=== PATIENT | male | born 1985 | race Caucasian/White ===

== ENCOUNTER 2018-09-22 00:16 | Outpatient (CLI) | payer OTHER, SELFPAY ==
--- NOTE | 2018-09-22 10:22 | DI.CT_ITS ---
SYMPTOM/DIAGNOSIS: POSSIBLE RT KIDNEY STONE, N20.0, CALCULUS OF KIDNEY, COMPARE TO US 02/14/[address]: CT examination of the abdomen and pelvis was performed without contrast administration. Visualized portions of the liver and spleen are unremarkable in appearance as is the pancreas. Gallbladder and bile ducts are CT normal. Superior portions of the liver and spleen not included on the imaging field. No significant abdominal wall hernia is seen. No significant abdominal or pelvic adenopathy. Abdominal aorta is of normal diameter. Appendix appears normal. No evidence of diverticulitis or bowel obstruction. Adrenals appear normal bilaterally. Kidneys are unremarkable in appearance with no evidence of a renal mass, hydronephrosis or nephrolithiasis. No evidence of ureterolithiasis. No ureteral dilatation. Normal appearance of the urinary bladder. CONCLUSION: Negative abdomen and pelvic CT, no evidence of urinary tract obstruction or calcification.
== END 2018-09-22 00:36 ==
PROVIDERS: PCP Physician Assistant Medical; Visit Provider Urology
DX: N20.0 Calculus of kidney (principal)
CPT/HCPCS: 74176

== ENCOUNTER 2020-09-16 11:49 | Outpatient (REF) | payer OTHER, SELFPAY ==
[2020-09-19 02:33] LABS: Patient Race White; SARS-CoV-2 RNA Undetected (Undetected); SARS-CoV-2 Specimen Source Nasopharynx
== END 2020-09-16 12:09 ==
LOC: NCHCN 11:49
PROVIDERS: PCP Physician Assistant Medical; Visit Provider Physician Assistant Medical
DX: R05 Cough (principal)
CPT/HCPCS: U0003

== ENCOUNTER 2022-01-16 15:08 | Outpatient (REF) | payer OTHER, SELFPAY ==
[2022-01-16 15:48] LABS: ALT 40 U/L (16-63); AST 23 U/L (15-37); Albumin 4.2 g/dL (3.4-5.0); Alkaline Phosphatase 57 U/L (46-116); Anion Gap 8.2 mmol/L (3-11); BUN 21 mg/dL (7-18); Bilirubin, Total 0.4 mg/dL (0.2-1.0); CO2 29.8 mmol/L (21.0-32.0); CREATININE 0.9 mg/dL (0.70-1.30); Chloride 105 mmol/L (98-107); Glucose 87 mg/dL (74-106); Potassium 4.2 mmol/L (3.5-5.1); Sodium 143 mmol/L (136-145); Total Protein 7.1 g/dL (6.4-8.2)
[2022-01-16 23:04] LABS: PSA, Screening 1.3 ng/mL (0.0-2.5)
[2022-01-19 11:56] LABS: HIV-1/2 Ag & Ab Screen Negative (Negative)
[2022-01-19 14:06] LABS: Hepatitis C Ab w Rflx HCV PCR Negative (Negative)
[2022-01-19 14:18] LABS: Syphilis Serology (RPR) Negative (Negative)
[2022-01-19 15:33] LABS: Chlamydia Result Negative (Negative); GC Result Negative (Negative)
== END 2022-01-16 15:09 | disposition home or self-care (01) ==
LOC: NCHCN 15:08
PROVIDERS: PCP Physician Assistant Medical; Visit Provider Nurse Practitioner Family
DX: Z12.5 Encounter for screening for malignant neoplasm of prostate (principal); Z11.4 Encounter for screening for human immunodeficiency virus [HIV]; Z11.3 Encounter for screening for infections with a predominantly sexual mode of transmission; R39.11 Hesitancy of micturition; M54.59 Other low back pain; Z11.59 Encounter for screening for other viral diseases; Z00.00 Encounter for general adult medical examination without abnormal findings
CPT/HCPCS: 80053; 84153; 86803; 87389; 87491; 87591; 86592

== ENCOUNTER 2022-09-20 19:05 | Emergency (ER) | payer OTHER, SELFPAY ==
[2022-09-20] VITALS (22 sets, daily range): BP systolic 95–134; BP diastolic 47–74; PULSE 72–89; RESP 16; TEMP 38.1; O2SAT 89–99
--- NOTE | 2022-09-20 19:30 | DI.CT_ITS ---
Exam(s) CT HEAD WO EXAM: CT HEAD WO CLINICAL HISTORY: headache. TECHNIQUE: Imaging Protocol: Axial computed tomography images with coronal and sagittal reformatted images were created and reviewed COMPARISON: No exams were available for comparison FINDINGS: Ventricles and Extra axial spaces: Mild ventricular asymmetry, within normal limits of variation. Hemorrhage: None. Cerebral parenchyma: Normal. Midline shift: None. Brainstem/Cerebellum: Normal. Calvarium: Normal. Visualized Paranasal sinuses/Mastoids: Clear. Soft Tissues: Unremarkable. IMPRESSION: No acute intracranial process. RADIATION DOSE DELIVERED: 824.77mGy.cm Total DLP DATA REPOSITORY: All CT scans at this facility are submitted to the National Radiology Data Registry (NRDR) Dose Index Registry (DIR) with the [employer] ([employer]). RADIATION OPTIMIZATION: All CT scans at this facility use at least one of these dose optimization te chniques: automated exposure control; mA and/or kV adjustment per patient size (includes targeted exa ms where dose is matched to clinical indication); or iterative reconstruction.
--- NOTE | 2022-09-20 19:32 | DI.RAD_ITS ---
Exam(s) XR CHEST 1V IN DI DEPT EXAM: XR CHEST 1V IN DI DEPT CLINICAL HISTORY: low grade fever TECHNIQUE: 2D digital imaging was performed. COMPARISON: CR from 08/21/2011 FINDINGS: LUNGS: Clear. No pleural abnormality seen. HEART: Normal. AORTA: Normal. BONES: Unremarkable for age. Soft tissues: Unremarkable. IMPRESSION: No acute findings. DATA REPOSITORY: RADIATION DOSE DELIVERED:
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
[2022-09-20 20:04] LABS: Abs Immature Grans 0.01 10^3/uL (0.0-0.06); Absolute Basophil Count 0.02 10^3/uL (0.0-0.2); Absolute Eosinophil Count 0.05 10^3/uL (0.0-0.7); Absolute Lymphocyte Count 0.27 10^3/uL (1.2-3.4); Absolute Monocyte Count 0.71 10^3/uL (0.1-0.8); Basophils % 0.4; Eosinophils % 0.9; HCT 41.7 % (40.0-50.0); HGB 14.6 g/dL (13.5-17.5); Immature Grans % 0.2; MCH 31.9 pg (27.0-33.0); MCV 91 fL (80-95); MPV 10.4 fL (8.0-11.0); Monocytes % 13.2; Neutrophils % 80.3; Platelet Count 137 10^3/uL (130-400); RBC 4.57 10^6/uL (4.36-5.78); RDW 12.8 % (11.8-14.1); RDW-SD 42.2 fL; WBC 5.36 10^3/uL (4.4-10.8)
--- NOTE | 2022-09-20 20:08 | DI.VRAD_ITS ---
PROCEDURE INFORMATION: Exam: CT Head Without Contrast Exam date and time: 09/20/2022 7:45 PM Age: 36 years old Clinical indication: Pain; Headache not specified; Additional info: [facility] TECHNIQUE: Imaging protocol: Computed tomography of the head without contrast. Radiation optimization: All CT scans at this facility use at least one of these dose optimization techniques: automated exposure control; mA and/or kV adjustment per patient size (includes targeted exams where dose is matched to clinical indication); or iterative reconstruction. COMPARISON: No relevant prior studies available. FINDINGS: Brain: Mild volume loss.No hemorrhage. Unremarkable white matter. No mass effect. Cerebral ventricles: No ventriculomegaly. Paranasal sinuses: Visualized sinuses are unremarkable. No fluid levels. Mastoid air cells: Visualized mastoid air cells are well aerated. Bones/joints: Unremarkable. No acute fracture. Soft tissues: Unremarkable. IMPRESSION: No acute intracranial abnormality. Dictated and Authenticated by: Griffin Bravo MD. Ordering:MARISOL Faria MD
--- NOTE | 2022-09-20 20:08 | DI.VRAD_ITS ---
PROCEDURE INFORMATION: Exam: XR Chest Exam date and time: 09/20/2022 7:57 PM Age: 36 years old Clinical indication: Other: Low grade fever TECHNIQUE: Imaging protocol: Radiologic exam of the chest. Views: 1 view. COMPARISON: CT ABDOMEN PELVIS WO 09/22/2018 10:15 AM FINDINGS: Lungs: No mild interstitial prominence. No consolidation. Pleural spaces: Unremarkable. No pleural effusion. No pneumothorax. Heart/Mediastinum: Unremarkable. No cardiomegaly. Bones/joints: Unremarkable. IMPRESSION: Mild interstitial prominence which may be chronic. No radiographic evidence for pneumonia Dictated and Authenticated by: Griffin Bravo MD. Ordering:MARISOL Faria MD
[2022-09-20 20:19] LABS: ALT 30 U/L (16-63); AST 15 U/L (15-37); Albumin 4.4 g/dL (3.4-5.0); Alkaline Phosphatase 51 U/L (46-116); Anion Gap 6.6 mmol/L (3-11); BUN 11 mg/dL (7-18); Bilirubin, Total 0.6 mg/dL (0.2-1.0); CO2 28.4 mmol/L (21.0-32.0); CREATININE 0.8 mg/dL (0.70-1.30); Calcium 8.4 mg/dL (8.5-10.1); Chloride 102 mmol/L (98-107); Glucose 96 mg/dL (74-106); Magnesium 1.5 mg/dL (1.8-2.4); Potassium 3.6 mmol/L (3.5-5.1); Sodium 137 mmol/L (136-145); Total Protein 7.5 g/dL (6.4-8.2)
[2022-09-20 20:40] LABS: Influenza A PCR Negative (Negative); Influenza B PCR Negative (Negative); RSV PCR Negative (Negative)
[2022-09-20] MEDS: ACETAMINOPHEN 1,000 MG/100 ML BTL 400 MG IVPB (20:40)
[2022-09-20] MEDS: Dexamethasone 10 MG/ML VIAL IVP (20:41)
[2022-09-20] MEDS: Ketorolac 15 MG/ML VIAL IVP (20:42)
[2022-09-20 20:43] LABS: COVID-19 PCR Positive (Negative); Source Nasopharynx
--- NOTE | 2022-09-20 21:13 | W.EDPROG ---
Date of service: 09/20/22 Time of Service: 21:15 Medical Decision Making pt signed out to me pending labs and imaging, imaging shows no acute findings, he is positive for covid and mild low magnesium level. He is stable and feels better, no meningismus and appears well systemically so doubt meningitis at this time. He is not vaccinated, is interested in paxlovid which I ordered for him to start since symptoms started today. He has no oxygen requirement and is stable for d/c, cdc quarantine guidelines provided and return precautions given Discharge Plan Disposition Patient Disposition: HOME Condition: Stable Discharge Details Clinical Impression: Headache, COVID Primary Care Provider: Ayanna Webber ED Provider: Bassem Griffin Home Meds and New Rx's Prescriptions: Continued cyclobenzaprine 5 mg tablet 5 mg PO QHS PRN Discharge Instructions Instructions: Hypomagnesemia (ED), COVID-19 (Coronavirus Disease 2019) (ED) Additional Instructions: you were positive for covid and your magnesium level was mildly low isolate per the cdc recommendations if you feel more ill, have difficulty breathing or persistent vomiting return to the emergency department
== END 2022-09-20 21:46 | disposition home or self-care (01) ==
PROVIDERS: Emergency Medicine; Emergency Provider Emergency Medicine; PCP Physician Assistant Medical
DX: U07.1 COVID-19 (principal); Z28.310 Unvaccinated for COVID-19; E83.42 Hypomagnesemia
CPT/HCPCS: 80053; 87637; 96361; 96374; 96375; 99284; 70450; 71045; 83735; 85025; J0131; J1100; J1885

== ENCOUNTER 2022-12-10 17:58 | Outpatient (REF) | payer OTHER, SELFPAY ==
[2022-12-12 09:37] LABS: HIV-1/2 Ag & Ab Screen Negative (Negative)
[2022-12-12 15:15] LABS: Chlamydia Result Negative (Negative); GC Result Negative (Negative)
[2022-12-14 09:56] LABS: Hepatitis C Ab w Rflx HCV PCR Negative (Negative)
[2022-12-14 10:08] LABS: Hepatitis B Surface Ag Negative (Negative)
[2022-12-14 10:46] LABS: Syphilis Serology (RPR) Negative (Negative)
== END 2022-12-10 17:59 | disposition home or self-care (01) ==
LOC: LBN 17:58
PROVIDERS: PCP Physician Assistant Medical; Visit Provider Physician Assistant Medical
DX: Z11.3 Encounter for screening for infections with a predominantly sexual mode of transmission (principal); Z11.59 Encounter for screening for other viral diseases; Z11.4 Encounter for screening for human immunodeficiency virus [HIV]
CPT/HCPCS: 86803; 87340; 87389; 87491; 87591; 86592

== ENCOUNTER 2023-06-11 15:23 | Outpatient (REF) | payer OTHER, SELFPAY ==
[2023-06-11 20:11] LABS: ALT 30 U/L (16-63); AST 21 U/L (15-37); Albumin 4.1 g/dL (3.4-5.0); Alkaline Phosphatase 57 U/L (46-116); Anion Gap 7.9 mmol/L (3-11); BUN 18 mg/dL (7-18); Bilirubin, Total 0.5 mg/dL (0.2-1.0); CO2 28.1 mmol/L (21.0-32.0); Calcium 9.2 mg/dL (8.5-10.1); Calculated LDL 115 mg/dL (<100); Chloride 105 mmol/L (98-107); Cholesterol 177 mg/dL (<200); Glucose 120 mg/dL (74-106); HDL Cholesterol 41 mg/dL (40-60); Magnesium 1.9 mg/dL (1.8-2.4); Potassium 4.5 mmol/L (3.5-5.1); Sodium 141 mmol/L (136-145); Total Protein 7.1 g/dL (6.4-8.2); Triglyceride 109 mg/dL (<150)
[2023-06-11 21:56] LABS: Hemoglobin A1C 5.4 % (<5.7)
== END 2023-06-11 15:24 | disposition home or self-care (01) ==
LOC: NCHCN 15:23
PROVIDERS: PCP Physician Assistant Medical; Visit Provider Physician Assistant Medical
DX: Z00.00 Encounter for general adult medical examination without abnormal findings (principal); Z13.1 Encounter for screening for diabetes mellitus; Z13.220 Encounter for screening for lipoid disorders; E83.42 Hypomagnesemia
CPT/HCPCS: 80053; 80061; 83036; 83735